=== PATIENT | female | born 1990 | race Caucasian/White ===

== ENCOUNTER 2016-10-21 01:31 | Emergency (ER) | payer MEDICAID ==
[~2016-10-21] VITALS: Ht 165.1 cm; Wt 55.8 kg
[2016-10-21] MEDS ORDERED: ASPIRIN 81 MG TAB.CHEW PO ONE (02:15)
[2016-10-21] MEDS ORDERED: IBUPROFEN 600 MG TABLET PO ONE (02:15)
[2016-10-21 02:25] LABS: BASOPHILS # (AUTO) 0.1 K/uL (0.0-8.0); BASOPHILS % (AUTO) 0.8 % (0.0-2.0); EOSINOPHILS # (AUTO) 0.2 K/uL (0.0-0.7); EOSINOPHILS % (AUTO) 2.3 % (0.0-7.0); HEMATOCRIT 40.5 % (37-47); HEMOGLOBIN 13.8 G/DL (12.0-16.0); LYMPHOCYTES # (AUTO) 2.6 K/UL (0.8-4.8); LYMPHOCYTES % (AUTO) 27.2 % (20.5-51.5); MEAN CORPUSCULAR HEMOGLOBIN 30.5 UUG (27.0-31.0); MEAN CORPUSCULAR HGB CONC 34 g/dL (32.0-37.0); MEAN CORPUSCULAR VOLUME 89.4 FL (81.0-99.0); MONOCYTES # (AUTO) 0.7 K/UL (0.1-1.30); MONOCYTES % (AUTO) 7.6 % (0.0-11.0); NEUTROPHILS # (AUTO) 6.1 K/UL (1.8-8.9); NEUTROPHILS % (AUTO) 62.1 % (38.5-71.5); PLATELET COUNT (AUTO) 349 K/UL (150-450); RED BLOOD CELL COUNT(AUTO) 4.53 MIL/UL (4.2-5.4); WHITE BLOOD COUNT (AUTO) 9.7 K/UL (4.0-11.2)
[2016-10-21] MEDS ORDERED: ASPIRIN 81 MG TAB.CHEW ONE (02:26)
[2016-10-21] MEDS ORDERED: IBUPROFEN 600 MG TABLET ONE (02:26)
[2016-10-21 02:27] LABS: CREATININE 0.9 mg/dL (0.6-1.3); POTASSIUM 3.8 mmol/L (3.5-5.1)
[2016-10-21 02:44] LABS: BILIRUBIN,DIRECT 0.1 mg/dL (0.0-0.2); BILIRUBIN,TOTAL 0.5 mg/dL (0.2-1.0); TOTAL PROTEIN, SERUM 8.2 g/dL (6.4-8.2)
--- NOTE | 2016-10-21 03:17 | NUR ---
Patient discharged to home in stable conditon. Written and verbal after care instructions given. Patient verbalizes understanding of instructions.
== END 2016-10-21 03:17 | disposition home or self-care (01) ==
LOC: ER 01:31
DX: R07.9 Chest pain, unspecified (principal)
CPT/HCPCS: 36415; 70030-TC; 71010; 85025; 93005; A4663